=== PATIENT | male | born 1935 | race Caucasian/White ===

== ENCOUNTER 2021-01-26 16:04 | Inpatient (IN) | payer MEDICARE, OTHER ==
[~2021-01-26] VITALS: Ht 170.2 cm; Wt 87.1 kg
[2021-01-26 16:57] LABS: BASOPHILS % (AUTO) 0.3 % (0.0-5.0); EOSINOPHILS % (AUTO) 1.9 % (0.0-8.0); HEMATOCRIT 43.6 % (42-54); LYMPHOCYTES % (AUTO) 7.4 % (21.0-51.0); MEAN CORPUSCULAR HEMOGLOBIN 30.5 pg (27.0-33.0); MEAN CORPUSCULAR HGB CONC 33.9 g/dL (32.0-36.0); MEAN CORPUSCULAR VOLUME 89.9 fL (79-99); MONOCYTES % (AUTO) 10.7 % (3.0-13.0); NEUTROPHILS % (AUTO) 78.7 % (40.0-77.0); PLATELET COUNT (AUTO) 293 K/uL (130-400); RED BLOOD CELL COUNT(AUTO) 4.85 MIL/uL (4.50-6.20); RED CELL DISTRIBUTION WIDTH 13.2 % (11.0-15.5); WHITE BLOOD COUNT (AUTO) 11.7 K/uL (4.8-10.8)
[2021-01-26 17:10] LABS: INR 1.05 (0.85-1.15); PROTHROMBIN TIME 11.4 SEC (9.6-11.6)
[2021-01-26 17:11] LABS: PARTIAL THROMBOPLASTIN TIME 35.2 SEC (26.3-35.5)
[2021-01-26 17:24] LABS: CREATININE 1.5 mg/dL (0.5-1.5); POTASSIUM 4.1 mmol/L (3.5-5.1)
[2021-01-26 17:28] LABS: ALBUMIN 3.2 g/dL (3.5-5.0); BILIRUBIN,TOTAL 0.5 mg/dL (0.2-1.0); TOTAL PROTEIN, SERUM 7.2 g/dL (6.0-8.3)
[2021-01-26] MEDS ORDERED: ZOSYN 3.375GM+NS 50ML 50 ML IV ONE (17:48)
[2021-01-26] MEDS ORDERED: VANCOMYCIN 1G/250ML KIT 250 ML IV ONE (17:48)
[2021-01-26] MEDS ORDERED: ACETAMINOPHEN 325 MG TAB ONE (17:49)
[2021-01-26 18:02] LABS: CREATINE KINASE, TOTAL 96 U/L (21-232); MYOGLOBIN 120 ng/mL (10-92); TROPONIN I < 0.04 ng/mL (0.00-0.06)
[2021-01-26] MEDS ORDERED: VANCOMYCIN 1G/250ML KIT 250 ML IV SCH (21:15)
[2021-01-26] MEDS ORDERED: ACETAMINOPHEN WITH CODEINE 1 TAB TAB PO PRN (21:15)
[2021-01-26] MEDS ORDERED: LACTULOSE 20 GM/30 ML UDCUP PO PRN (21:15)
[2021-01-26] MEDS ORDERED: ONDANSETRON 4MG INJ IV PRN (21:15)
[2021-01-26] MEDS: CEFAZOLIN SODIUM 1 GM VIAL IVP SCH (21:15)
[2021-01-26] MEDS ORDERED: VANCOMYCIN PROTOCOL PER PHARMACY IV PRN (21:15)
[2021-01-26] MEDS ORDERED: COMPOUND IV REFRIGERATED 1 EACH IVSOLN MISC PRN (21:45)
[2021-01-26] MEDS ORDERED: CEFAZOLIN SODIUM 1 GM VIAL ONE (23:17)
[2021-01-27 00:27] VITALS: BP 172/88
[2021-01-27 04:00] VITALS: BP 143/76
[2021-01-27 07:18] LABS: BASOPHILS % (AUTO) 0.3 % (0.0-5.0); EOSINOPHILS % (AUTO) 3.1 % (0.0-8.0); HEMATOCRIT 43.4 % (42-54); LYMPHOCYTES % (AUTO) 9.7 % (21.0-51.0); MEAN CORPUSCULAR HEMOGLOBIN 30.4 pg (27.0-33.0); MEAN CORPUSCULAR HGB CONC 33.6 g/dL (32.0-36.0); MEAN CORPUSCULAR VOLUME 90.2 fL (79-99); MONOCYTES % (AUTO) 9.9 % (3.0-13.0); NEUTROPHILS % (AUTO) 76.1 % (40.0-77.0); PLATELET COUNT (AUTO) 277 K/uL (130-400); RED BLOOD CELL COUNT(AUTO) 4.81 MIL/uL (4.50-6.20); RED CELL DISTRIBUTION WIDTH 13.3 % (11.0-15.5)
[2021-01-27 07:24] LABS: POTASSIUM 4.4 mmol/L (3.5-5.1)
[2021-01-27 08:00] VITALS: BP 155/75
[2021-01-27] MEDS: FAMOTIDINE 20MG VIAL IV SCH (08:36)
[2021-01-27] MEDS: CEFAZOLIN SODIUM 1 GM VIAL IVP SCH ×2 (08:36→20:06)
[2021-01-27] MEDS: ENOXAPARIN SODIUM 40 MG/0.4 ML SYRINGE SQ SCH (08:38)
[2021-01-27] MEDS ORDERED: TIMO1DRO5 OP (11:00)
[2021-01-27] MEDS ORDERED: FLUT16H NS (11:00)
[2021-01-27] MEDS ORDERED: FURO20TA4 PO (11:00)
[2021-01-27] MEDS ORDERED: SIMV10TA97 PO (11:00)
[2021-01-27] MEDS ORDERED: METO25TA6 PO (11:00)
[2021-01-27] MEDS ORDERED: ASPI-1197 PO (11:01)
[2021-01-27 11:48] VITALS: BP 134/69
[2021-01-27] MEDS: VANCOMYCIN 500MG+NS 100ML 100 ML IV SCH ×2 (12:03→20:06)
[2021-01-27] MEDS ORDERED: MUPIROCIN OINTMENT 22 GM TUBE TP SCH (13:45)
[2021-01-27 15:34] VITALS: BP 156/74
[2021-01-27 17:54] LABS: APPEARANCE,URINE Clear (CLEAR); BILIRUBIN,URINE Negative (NEGATIVE); COLOR,URINE Yellow (YELLOW); GLUCOSE, URINE (UA) Negative (NEGATIVE); KETONES,URINE Negative (NEGATIVE); LEUKOCYTE ESTERASE ,URINE Negative (NEGATIVE); NITRATE,URINE Negative (NEGATIVE); OCCULT BLOOD,URINE Negative (NEGATIVE); PH,URINE 7.5 (5.0-8.0); PROTEIN,URINE Negative (NEGATIVE)
[2021-01-27 20:00] VITALS: BP 146/79
[2021-01-27] MEDS ORDERED: VANCOMYCIN 1G 1.25 GM in 0.9% NACL 250ML 250 ML IV SCH (20:00)
[2021-01-27] MEDS: METOPROLOL TARTRATE 25 MG TAB PO SCH (20:06)
[2021-01-27] MEDS: SIMVASTATIN 10 MG TABLET PO SCH (20:06)
[2021-01-28] VITALS (7 sets, daily range): BP systolic 154–177; BP diastolic 80–98
[2021-01-28] MEDS: VANCOMYCIN 500MG+NS 100ML 100 ML IV SCH ×3 (03:04→22:00)
[2021-01-28 05:46] LABS: BASOPHILS % (AUTO) 0.3 % (0.0-5.0); EOSINOPHILS % (AUTO) 4.5 % (0.0-8.0); HEMATOCRIT 42.5 % (42-54); LYMPHOCYTES % (AUTO) 11.1 % (21.0-51.0); MEAN CORPUSCULAR HEMOGLOBIN 30.4 pg (27.0-33.0); MEAN CORPUSCULAR HGB CONC 33.9 g/dL (32.0-36.0); MEAN CORPUSCULAR VOLUME 89.7 fL (79-99); MONOCYTES % (AUTO) 8.3 % (3.0-13.0); NEUTROPHILS % (AUTO) 74.3 % (40.0-77.0); PLATELET COUNT (AUTO) 276 K/uL (130-400); RED BLOOD CELL COUNT(AUTO) 4.74 MIL/uL (4.50-6.20); RED CELL DISTRIBUTION WIDTH 13.1 % (11.0-15.5); WHITE BLOOD COUNT (AUTO) 9.3 K/uL (4.8-10.8)
[2021-01-28 05:57] LABS: CREATININE 0.9 mg/dL (0.5-1.5); POTASSIUM 4.8 mmol/L (3.5-5.1)
[2021-01-28] MEDS: ENOXAPARIN SODIUM 40 MG/0.4 ML SYRINGE SQ SCH (10:22)
[2021-01-28] MEDS: FAMOTIDINE 20MG VIAL IV SCH (10:22)
[2021-01-28] MEDS: CEFAZOLIN SODIUM 1 GM VIAL IVP SCH ×2 (10:22→22:05)
[2021-01-28] MEDS: FLUTICASONE PROPIONATE 50MCG/SPRAY 16 GM BOTTLE NS SCH (10:23)
[2021-01-28] MEDS: METOPROLOL TARTRATE 25 MG TAB PO SCH ×2 (10:23→22:04)
[2021-01-28] MEDS: TIMOLOL MALEATE 0.5% 5 ML BOTTLE OP SCH (10:23)
[2021-01-28] MEDS: ASPIRIN 81MG CHEW TAB PO SCH (10:25)
[2021-01-28] MEDS: FUROSEMIDE 20 MG TABLET PO SCH (10:26)
[2021-01-28] MEDS ORDERED: VANCOMYCIN 1G 1.25 GM in 0.9% NACL 250ML 250 ML IV SCH (12:05)
[2021-01-28] MEDS ORDERED: HYDRALAZINE 20MG/ML VIAL ONE (18:15)
[2021-01-28] MEDS ORDERED: HYDRALAZINE 20MG/ML VIAL IV SCH (19:20)
[2021-01-28] MEDS ORDERED: 0.9% NACL 250ML 250 ML IV ONE (21:58)
[2021-01-28] MEDS: SIMVASTATIN 10 MG TABLET PO SCH (22:04)
[2021-01-29] VITALS (17 sets, daily range): BP systolic 101–173; BP diastolic 55–98
[2021-01-29] MEDS: VANCOMYCIN 500MG+NS 100ML 100 ML IV SCH ×3 (06:09→14:00)
[2021-01-29] MEDS: FUROSEMIDE 20 MG TABLET PO SCH (08:56)
[2021-01-29] MEDS: FLUTICASONE PROPIONATE 50MCG/SPRAY 16 GM BOTTLE NS SCH (08:56)
[2021-01-29] MEDS: METOPROLOL TARTRATE 25 MG TAB PO SCH ×2 (08:56→21:47)
[2021-01-29] MEDS: FAMOTIDINE 20MG VIAL IV SCH (08:56)
[2021-01-29] MEDS: TIMOLOL MALEATE 0.5% 5 ML BOTTLE OP SCH (08:56)
[2021-01-29] MEDS: ENOXAPARIN SODIUM 40 MG/0.4 ML SYRINGE SQ SCH (08:58)
[2021-01-29] MEDS: ASPIRIN 81MG CHEW TAB PO SCH (08:58)
[2021-01-29] MEDS: CEFAZOLIN SODIUM 1 GM VIAL IVP SCH ×2 (09:18→21:47)
[2021-01-29] MEDS ORDERED: PROPOFOL 1000 MG/100 ML 100 ML IV ONE (12:56)
[2021-01-29] MEDS ORDERED: KETAMINE 50MG/ML SYRINGE 50 MG/ML DISP.SYRIN IV ONE (12:57)
[2021-01-29] MEDS ORDERED: MIDAZOLAM HCL 1 MG/ML 2ML VIAL ONE (13:00)
[2021-01-29] MEDS ORDERED: LIDOCAINE HCL 1% 20 ML VIAL ONE (13:09)
[2021-01-29] MEDS ORDERED: BUPIVACAINE/PF 0.25% 30ML VIAL IJ ONE (13:09)
[2021-01-29] MEDS: ACETAMINOPHEN WITH CODEINE 1 TAB TAB PO PRN (16:42)
[2021-01-29] MEDS: SIMVASTATIN 10 MG TABLET PO SCH (21:47)
[2021-01-29] MEDS ORDERED: VANCOMYCIN 1G 1.25 GM in 0.9% NACL 250ML 250 ML IV SCH (22:00)
[2021-01-30 03:30] VITALS: BP 149/77
[2021-01-30 05:24] LABS: BASOPHILS % (AUTO) 0.3 % (0.0-5.0); HEMATOCRIT 44.8 % (42-54); LYMPHOCYTES % (AUTO) 7.3 % (21.0-51.0); MEAN CORPUSCULAR HEMOGLOBIN 29.8 pg (27.0-33.0); MEAN CORPUSCULAR VOLUME 90.1 fL (79-99); MONOCYTES % (AUTO) 9.3 % (3.0-13.0); NEUTROPHILS % (AUTO) 77.5 % (40.0-77.0); PLATELET COUNT (AUTO) 312 K/uL (130-400); RED BLOOD CELL COUNT(AUTO) 4.97 MIL/uL (4.50-6.20); WHITE BLOOD COUNT (AUTO) 12.2 K/uL (4.8-10.8)
[2021-01-30 05:43] LABS: CREATININE 0.9 mg/dL (0.5-1.5); POTASSIUM 4.6 mmol/L (3.5-5.1)
[2021-01-30] MEDS: VANCOMYCIN 500MG+NS 100ML 100 ML IV SCH ×4 (06:02→21:56)
[2021-01-30 07:37] VITALS: BP 172/85
[2021-01-30] MEDS: TIMOLOL MALEATE 0.5% 5 ML BOTTLE OP SCH (09:32)
[2021-01-30] MEDS: FLUTICASONE PROPIONATE 50MCG/SPRAY 16 GM BOTTLE NS SCH (09:32)
[2021-01-30] MEDS: FUROSEMIDE 20 MG TABLET PO SCH (09:33)
[2021-01-30] MEDS: ASPIRIN 81MG CHEW TAB PO SCH (09:34)
[2021-01-30] MEDS: FAMOTIDINE 20MG VIAL IV SCH (09:34)
[2021-01-30] MEDS: CEFAZOLIN SODIUM 1 GM VIAL IVP SCH (09:34)
[2021-01-30] MEDS: METOPROLOL TARTRATE 25 MG TAB PO SCH ×3 (09:34→21:55)
[2021-01-30] MEDS: ENOXAPARIN SODIUM 40 MG/0.4 ML SYRINGE SQ SCH (09:35)
[2021-01-30] MEDS: ACETAMINOPHEN WITH CODEINE 1 TAB TAB PO PRN (10:49)
[2021-01-30 11:34] VITALS: BP 149/80
[2021-01-30 16:00] VITALS: BP 149/70
[2021-01-30 19:58] VITALS: BP 149/80
[2021-01-30] MEDS: SIMVASTATIN 10 MG TABLET PO SCH ×2 (21:48→21:55)
[2021-01-30] MEDS: VANCOMYCIN 1G/250ML KIT 250 ML IV SCH ×2 (21:55→21:56)
[2021-01-30 23:59] VITALS: BP 150/83
[2021-01-31 04:11] VITALS: BP 160/82
[2021-01-31 07:08] LABS: BASOPHILS % (AUTO) 0.3 % (0.0-5.0); EOSINOPHILS % (AUTO) 5.8 % (0.0-8.0); HEMATOCRIT 44.2 % (42-54); LYMPHOCYTES % (AUTO) 8.1 % (21.0-51.0); MEAN CORPUSCULAR HEMOGLOBIN 29.6 pg (27.0-33.0); MEAN CORPUSCULAR VOLUME 89.5 fL (79-99); MONOCYTES % (AUTO) 11.1 % (3.0-13.0); NEUTROPHILS % (AUTO) 72.2 % (40.0-77.0); PLATELET COUNT (AUTO) 294 K/uL (130-400); RED BLOOD CELL COUNT(AUTO) 4.94 MIL/uL (4.50-6.20); RED CELL DISTRIBUTION WIDTH 13.2 % (11.0-15.5); WHITE BLOOD COUNT (AUTO) 9.4 K/uL (4.8-10.8)
[2021-01-31 07:19] LABS: CREATININE 0.9 mg/dL (0.5-1.5); POTASSIUM 4.2 mmol/L (3.5-5.1)
[2021-01-31 08:00] VITALS: BP 164/86
[2021-01-31] MEDS: FLUTICASONE PROPIONATE 50MCG/SPRAY 16 GM BOTTLE NS SCH (10:05)
[2021-01-31] MEDS: VANCOMYCIN 1G/250ML KIT 250 ML IV SCH ×2 (10:05→20:54)
[2021-01-31] MEDS: FAMOTIDINE 20MG VIAL IV SCH (10:06)
[2021-01-31] MEDS: ASPIRIN 81MG CHEW TAB PO SCH (10:06)
[2021-01-31] MEDS: TIMOLOL MALEATE 0.5% 5 ML BOTTLE OP SCH (10:06)
[2021-01-31] MEDS: FUROSEMIDE 20 MG TABLET PO SCH (10:07)
[2021-01-31] MEDS: METOPROLOL TARTRATE 25 MG TAB PO SCH (10:07)
[2021-01-31] MEDS: ENOXAPARIN SODIUM 40 MG/0.4 ML SYRINGE SQ SCH (10:08)
[2021-01-31 12:00] VITALS: BP 156/72
[2021-01-31 16:00] VITALS: BP 157/77
[2021-01-31 20:28] VITALS: BP 154/81
[2021-01-31] MEDS ORDERED: SIMVASTATIN 10 MG TABLET PO ONE (21:00)
[2021-01-31] MEDS ORDERED: METOPROLOL TARTRATE 25 MG TAB PO ONE (21:00)
[2021-02-01 00:32] VITALS: BP 161/87
[2021-02-01 03:20] VITALS: BP 159/73
[2021-02-01 08:00] VITALS: BP 170/90
[2021-02-01] MEDS: VANCOMYCIN 1G/250ML KIT 250 ML IV SCH ×3 (09:41→21:40)
[2021-02-01] MEDS: FAMOTIDINE 20MG TAB PO SCH (09:42)
[2021-02-01] MEDS: ASPIRIN 81MG CHEW TAB PO SCH (09:42)
[2021-02-01] MEDS: FUROSEMIDE 20 MG TABLET PO SCH (09:42)
[2021-02-01] MEDS: LISINOPRIL 10 MG TABLET PO SCH (09:43)
[2021-02-01] MEDS: ENOXAPARIN SODIUM 40 MG/0.4 ML SYRINGE SQ SCH (09:44)
[2021-02-01] MEDS: METOPROLOL TARTRATE 25 MG TAB PO SCH ×2 (09:47→21:40)
[2021-02-01] MEDS: TIMOLOL MALEATE 0.5% 5 ML BOTTLE OP SCH (09:59)
[2021-02-01] MEDS: FLUTICASONE PROPIONATE 50MCG/SPRAY 16 GM BOTTLE NS SCH (10:00)
[2021-02-01 16:00] VITALS: BP 172/95
[2021-02-01 19:53] VITALS: BP 152/82
[2021-02-01] MEDS: SIMVASTATIN 10 MG TABLET PO SCH (21:40)
[2021-02-01 23:51] VITALS: BP 131/75
[2021-02-02 03:43] VITALS: BP 131/79
[2021-02-02 08:10] VITALS: BP 137/77
[2021-02-02] MEDS: METOPROLOL TARTRATE 25 MG TAB PO SCH ×2 (09:18→19:31)
[2021-02-02] MEDS: FAMOTIDINE 20MG TAB PO SCH (09:18)
[2021-02-02] MEDS: FUROSEMIDE 20 MG TABLET PO SCH (09:18)
[2021-02-02] MEDS: ENOXAPARIN SODIUM 40 MG/0.4 ML SYRINGE SQ SCH (09:18)
[2021-02-02] MEDS: LISINOPRIL 10 MG TABLET PO SCH (09:19)
[2021-02-02] MEDS: ASPIRIN 81MG CHEW TAB PO SCH (09:19)
[2021-02-02] MEDS: TIMOLOL MALEATE 0.5% 5 ML BOTTLE OP SCH (09:25)
[2021-02-02] MEDS: FLUTICASONE PROPIONATE 50MCG/SPRAY 16 GM BOTTLE NS SCH (09:25)
[2021-02-02] MEDS: VANCOMYCIN 1G/250ML KIT 250 ML IV SCH ×2 (09:26→19:28)
[2021-02-02 11:05] VITALS: BP 107/71
[2021-02-02 16:15] VITALS: BP 134/99
[2021-02-02] MEDS: SIMVASTATIN 10 MG TABLET PO SCH (19:31)
[2021-02-02 20:00] VITALS: BP 148/85
[2021-02-02 23:31] VITALS: BP 117/65
[2021-02-03 03:56] VITALS: BP 147/80
[2021-02-03 07:58] VITALS: BP 144/73
[2021-02-03] MEDS: VANCOMYCIN 1G/250ML KIT 250 ML IV SCH (09:33)
[2021-02-03] MEDS: FAMOTIDINE 20MG TAB PO SCH (09:35)
[2021-02-03] MEDS: ENOXAPARIN SODIUM 40 MG/0.4 ML SYRINGE SQ SCH (09:35)
[2021-02-03] MEDS: LISINOPRIL 10 MG TABLET PO SCH (09:35)
[2021-02-03] MEDS: TIMOLOL MALEATE 0.5% 5 ML BOTTLE OP SCH (09:36)
[2021-02-03] MEDS: FUROSEMIDE 20 MG TABLET PO SCH (09:36)
[2021-02-03] MEDS: ASPIRIN 81MG CHEW TAB PO SCH (09:36)
[2021-02-03] MEDS: METOPROLOL TARTRATE 25 MG TAB PO SCH (09:36)
[2021-02-03] MEDS: FLUTICASONE PROPIONATE 50MCG/SPRAY 16 GM BOTTLE NS SCH (09:36)
[2021-02-03] MEDS ORDERED: AMOX/CLAV 500/125MG TAB PO SCH (10:47)
[2021-02-03 11:36] VITALS: BP 129/73
[2021-02-03 16:39] VITALS: BP 155/86
== END 2021-02-03 17:15 | DRG 623 ==
LOC: EDH 16:04 → EDHIP 21:03 → 3CH 01-27 00:26
PROVIDERS: ADMIT Internal Medicine; ATTEND Internal Medicine
PROC: 0LBV0ZZ Excision of Right Foot Tendon, Open Approach (ICD-10-PCS; 2021-01-29)
PROC: 0QBQ0ZX Excision of Right Toe Phalanx, Open Approach, Diagnostic (ICD-10-PCS; 2021-01-29)
PROC: 0S9M0ZZ Drainage of Right Metatarsal-Phalangeal Joint, Open Approach (ICD-10-PCS; principal; 2021-01-29 13:23)
DX: E11.69 Type 2 diabetes mellitus with other specified complication (principal); L03.115 Cellulitis of right lower limb; L02.611 Cutaneous abscess of right foot; M86.8X7 Other osteomyelitis, ankle and foot; E11.621 Type 2 diabetes mellitus with foot ulcer; I10 Essential (primary) hypertension; E78.5 Hyperlipidemia, unspecified; M19.90 Unspecified osteoarthritis, unspecified site; L97.519 Non-pressure chronic ulcer of other part of right foot with unspecified severity; I73.9 Peripheral vascular disease, unspecified; Z20.822 Contact with and (suspected) exposure to COVID-19; E66.9 Obesity, unspecified; H40.9 Unspecified glaucoma; I78.8 Other diseases of capillaries; M20.10 Hallux valgus (acquired), unspecified foot; R53.81 Other malaise; B95.2 Enterococcus as the cause of diseases classified elsewhere; M60.9 Myositis, unspecified; M85.80 Other specified disorders of bone density and structure, unspecified site; Z96.653 Presence of artificial knee joint, bilateral; Z79.2 Long term (current) use of antibiotics; Z79.899 Other long term (current) drug therapy
CPT/HCPCS: 36415; 71045; 73630; 73718; 80048; 80053; 80202; 81003; 82550; 83605; 83874; 84145; 84484; 85025; 85610; 85651; 85730; 86140; 86900; 86901; 87040; 87070; 87076; 87077; 87088; 87186; 87205; 87426; 88304; 88307; 88311; 88312; 93005; 93926; 97039; G0378; J0360; J0690; J1650; J2250; J2543; J2704; J3370; J3490; J7050; J7120; U0003

== ENCOUNTER → 2021-02-18 | Outpatient (CLI) | payer OTHER ==
[~2021-02-18] MED LIST: ASPI-1197 PO; FLUT16H NS; FURO20TA4 PO; LIDOCAINE HCL 2% JELLY 5 ML TP ONE; METO25TA6 PO; SIMV10TA97 PO; TIMO1DRO5 OP
== END | disposition home or self-care (01) ==
LOC: WHH 09:00
PROVIDERS: ATTEND Podiatrist Foot & Ankle Surgery
DX: T81.89XA Other complications of procedures, not elsewhere classified, initial encounter (principal); E11.621 Type 2 diabetes mellitus with foot ulcer; L97.516 Non-pressure chronic ulcer of other part of right foot with bone involvement without evidence of necrosis; E11.69 Type 2 diabetes mellitus with other specified complication; M86.8X7 Other osteomyelitis, ankle and foot; I10 Essential (primary) hypertension; E78.5 Hyperlipidemia, unspecified; M19.90 Unspecified osteoarthritis, unspecified site; E11.39 Type 2 diabetes mellitus with other diabetic ophthalmic complication; H42 Glaucoma in diseases classified elsewhere; E11.51 Type 2 diabetes mellitus with diabetic peripheral angiopathy without gangrene; E66.9 Obesity, unspecified; M85.88 Other specified disorders of bone density and structure, other site; Z79.82 Long term (current) use of aspirin; Z79.899 Other long term (current) drug therapy; Z79.4 Long term (current) use of insulin; Z96.653 Presence of artificial knee joint, bilateral; Z79.2 Long term (current) use of antibiotics; Z68.30 Body mass index [BMI] 30.0-30.9, adult; Y83.8 Other surgical procedures as the cause of abnormal reaction of the patient, or of later complication, without mention of misadventure at the time of the procedure; Y92.238 Other place in hospital as the place of occurrence of the external cause
CPT/HCPCS: A4450; A6209; G0463

== ENCOUNTER → 2021-03-04 | Outpatient (CLI) | payer OTHER ==
[~2021-03-04] MED LIST changes: -LIDOCAINE HCL 2% JELLY 5 ML TP ONE
== END | disposition home or self-care (01) ==
LOC: WHH 09:30
PROVIDERS: ATTEND Podiatrist Foot & Ankle Surgery
DX: T81.89XD Other complications of procedures, not elsewhere classified, subsequent encounter (principal); E11.621 Type 2 diabetes mellitus with foot ulcer; L97.516 Non-pressure chronic ulcer of other part of right foot with bone involvement without evidence of necrosis; E11.69 Type 2 diabetes mellitus with other specified complication; M86.8X7 Other osteomyelitis, ankle and foot; I10 Essential (primary) hypertension; E78.5 Hyperlipidemia, unspecified; M19.90 Unspecified osteoarthritis, unspecified site; E11.39 Type 2 diabetes mellitus with other diabetic ophthalmic complication; H42 Glaucoma in diseases classified elsewhere; E11.51 Type 2 diabetes mellitus with diabetic peripheral angiopathy without gangrene; E66.9 Obesity, unspecified; M85.88 Other specified disorders of bone density and structure, other site; Z79.82 Long term (current) use of aspirin; Z79.899 Other long term (current) drug therapy; Z79.4 Long term (current) use of insulin; Z96.653 Presence of artificial knee joint, bilateral; Z79.2 Long term (current) use of antibiotics; Z68.30 Body mass index [BMI] 30.0-30.9, adult; Y83.8 Other surgical procedures as the cause of abnormal reaction of the patient, or of later complication, without mention of misadventure at the time of the procedure
CPT/HCPCS: A4450; A6209; G0463

== ENCOUNTER → 2021-04-01 | Outpatient (CLI) | payer OTHER | END | disposition home or self-care (01) | LOC: WHH 08:48 | PROVIDERS: ATTEND Podiatrist Foot & Ankle Surgery | DX: T81.89XD Other complications of procedures, not elsewhere classified, subsequent encounter (principal); E11.621 Type 2 diabetes mellitus with foot ulcer; L97.516 Non-pressure chronic ulcer of other part of right foot with bone involvement without evidence of necrosis; E11.69 Type 2 diabetes mellitus with other specified complication; M86.8X7 Other osteomyelitis, ankle and foot; E11.39 Type 2 diabetes mellitus with other diabetic ophthalmic complication; H42 Glaucoma in diseases classified elsewhere; E11.51 Type 2 diabetes mellitus with diabetic peripheral angiopathy without gangrene; I10 Essential (primary) hypertension; E78.5 Hyperlipidemia, unspecified; M19.90 Unspecified osteoarthritis, unspecified site; E66.9 Obesity, unspecified; M85.88 Other specified disorders of bone density and structure, other site; Z79.82 Long term (current) use of aspirin; Z79.899 Other long term (current) drug therapy; Z79.4 Long term (current) use of insulin; Z96.653 Presence of artificial knee joint, bilateral; Z79.2 Long term (current) use of antibiotics; Z68.30 Body mass index [BMI] 30.0-30.9, adult; Y83.8 Other surgical procedures as the cause of abnormal reaction of the patient, or of later complication, without mention of misadventure at the time of the procedure | CPT/HCPCS: G0463 ==